=== PATIENT | female | born 1995 | race Caucasian/White ===

== ENCOUNTER 2019-03-04 00:12 | Emergency (ER) | payer MEDICAID ==
[~2019-03-04] VITALS: Ht 170.2 cm; Wt 63.0 kg
[2019-03-04] MEDS ORDERED: KETOROLAC 30MG/ML VIAL IM ONE (01:15)
[2019-03-04] MEDS ORDERED: SODIUM CHLORIDE 0.9% 1,000 ML IV ONE (03:18)
[2019-03-04 04:53] VITALS: BP 8/90
== END 2019-03-04 04:55 | disposition home or self-care (01) ==
LOC: ER 00:12
DX: S16.1XXA Strain of muscle, fascia and tendon at neck level, initial encounter (principal); V49.59XA Passenger injured in collision with other motor vehicles in traffic accident, initial encounter; Y93.89 Activity, other specified; Y92.89 Other specified places as the place of occurrence of the external cause; Y99.8 Other external cause status; J45.909 Unspecified asthma, uncomplicated
CPT/HCPCS: 93005; 96372; 99283; J1885; J7030; Z7610